=== PATIENT | male | born 1960 | race Caucasian/White ===

== ENCOUNTER 2021-06-24 20:28 | Emergency (ER) | payer OTHER, SELFPAY ==
[2021-06-24 20:35] VITALS: BP 133/79; PULSE 89; RESP 18; TEMP 36.8; O2SAT 94; BMI 33.2
--- NOTE | 2021-06-24 20:48 | ED_ITS ---
HPI - General Adult General: Chief complaint: General Medical Stated complaint: abdominal fluid Time Seen by Provider: 06/24/21 20:37 History of Present Illness: HPI narrative: HPI: [60]yo patient w/ hx of cirrhosis 2/2 hepatitis C treated who presents to the ED for evaluation of abdominal distension and request of routine paracentesis. Last paracentesis was 05/22 with removal of 3.5L of ascitic fluid. Patient denies sever abdominal tenderness, fever/chill, hematemesis, melena/hematochezia, confusion, or vomiting. No hx of acute upper GI bleeding, hepatic encephalopathy or spontaneous bacterial peritonitis in the past. Onset: chronic Duration: ongoing Location: home Severity: mild/moderate Review of Systems Narrative: Constitutional: No fever, no chills. HEENT: No vision changes CV: No chest pain, no palpitations PULM: No productive cough, no dyspnea. GI: No abdominal pain, no N/V/D. +abdominal distension : No Dysuria MSKEL: No muscle pain SKIN: No new rashes, no lesions. NEURO: No headache, no focal weakness. HEME: No visible bruises PSYCH: Normal mood Physical Exam Narrative: EXAM NARRATIVE: Head: Atraumatic Eyes: PERRL, conjunctiva without injection, eyes tracking ENT: Mucous membrane moist NECK: Supple without lymphadenopathy LUNGS: LCTAB CV: RRR ABDOMEN: Soft, nontender in all quadrants, abdominal distension with +fluid waves EXTREMITY: Normal ROM SKIN: No rash or erythema NEURO: Awake and alert. No focal weakness PSYCH: Cooperative mood and affect Procedures Paracentesis Time Out Performed: Yes Indication: Ascites Location: LLQ Local Anesthetic: lidocaine 1% Amount of anesthesia used (mL): 7 Bedside Ultrasound Used: yes, Ascites confirmed and location marked Preparation: 11 blade used to make mayte in skin Amount of fluid obtained (mL): 11,000 Fluid: clear Post Procedure Exam: awake, alert, normal BP, normal HR and normal SpO2 Patient Tolerated Procedure: well and no complications Complications: none Additional Comments: Removal of 11L of ascitic fluid. Patient received 60g of albumin post infusion. Course Vital Signs: Vital signs: Vital Signs Temperature 98.3 F 06/24/21 20:35 Pulse Rate 84 06/25/21 01:50 Respiratory Rate 20 H 06/25/21 01:50 Blood Pressure 121/61 06/25/21 01:50 Pulse Oximetry 93 06/25/21 01:50 MDM - General Adult MDM Narrative: Medical decision making narrative: [70]yo patient w/ hx of cirrhosis last paracentesis 8/8 weeks prior presenting to the ED with increased abdominal distension from ascites requesting routine paracentesis. No suspicion for SBP, hepatic encephalopathy, acute upper GI bleeding, or other emergent intra-abdominal pathologies since the patient has no complaints of abdominal pain and vitals are reassuring. Workup: CBC, CMP, Lipase, PT/INR/INR Lab findings: H&H stable Interventions: Elective paracentesis (please see procedure note) [11:20pm] On reassessment, abdominal distension improved after removal of 11L of ascitic fluids. Patient tolerated the procedure without issues. BP continues to be stable, no signs of orthostatic light-headendess on standing. Given >5L of ascitic fluids, patient received albumin infusion (25g). Patient has been able to ambulate in the ED without issues. Discussed removal of sterile dressing with patients in 48 hrs. Patient was observed in the ED for 5 hrs after paracentesis without any complications. Tolerated PO without any difficulities. Potassium of 2.8, supplemented with 2 tablets of 40mEql of PO potassium. Disposition: Discharge. Instructed regarding follow up within 24-48 hours with a primary care practitioner and strict return precautions for any signs of infection, fever/chill, drainage site erythema, abdominal tenderness, confusion or any new or concerning issues. Lab Data: Labs: Lab Results 06/24/21 06/24/21 06/24/21 Range/Units 21:40 21:40 21:40 WBC 3.7 L (4.0-10.0) 10^3/ uL RBC 3.95 L (4.1-5.3) 10^6/u L Hgb 10.7 L (11.7-16.6) g/dL Hct 34.1 L (42.0-52.0) % MCV 86.3 (80-94) fl MCH 27.1 L (28.0-34.0) pg MCHC 31.4 (30.0-36.0) g/dL RDW 15.9 H (12.1-15.1) % Plt Count 90 L (130-400) 10^3/c mm MPV 10.5 H (7.4-10.4) fL Neut % (Auto) 61.5 % Lymph % (Auto) 22.1 % [place] % (Auto) 11.1 % Eos % (Auto) 4.0 % Baso % (Auto) 0.8 % Neut # (Auto) 2.28 (1.8-7.7) 10^3/u L Lymph # (Auto) 0.8 (0.8-4.8) 10^3/u L [place] # (Auto) 0.4 (0.2-0.9) 10^3/u L Eos # (Auto) 0.2 (0.0-0.8) 10^3/u L Baso # (Auto) 0.0 (0.0-0.1) 10^3/u L Nucleated RBC % (a uto) 0 % Nucleated RBCs # 0.0 /100WBC PT 18.90 H (12.1-14.9) SECO NDS INR 1.55 H (0.8-1.2) APTT 31.8 (23.9-36.7) SECO NDS Sodium 134 L (136-145) mmol/L Potassium 2.8 L* (3.5-5.1) mmol/L Chloride 96 L (98-107) mmol/L Carbon Dioxide 30 H (22-29) mmol/L Anion Gap 10.8 (5-19) BUN 12 (8-23) mg/dL Creatinine 0.6 L (0.7-1.2) mg/dL GFR Calculation 136.5 H (90-130) mL/min Glucose 144 H (65-115) mg/dL Calculated Osmolal ity 280 L (285-295) mOsm/k g Calcium 7.4 L (8.5-10.5) mg/dL Total Bilirubin 2.0 H (0.15-1.2) mg/dL AST 34 (0-40) U/L ALT 24 (0-41) U/L Alkaline Phosphata se 92 (40-130) IU/L Total Protein 5.8 L (6.6-8.7) g/dL Albumin 3.0 L (3.5-5.2) g/dL Globulin 2.8 (1.3-4.6) g/dL Lipase 50 (13-60) U/L Discharge Plan Discharge Patient Disposition: Home Clinical Impression: Hypokalemia Cirrhosis Qualifiers: Hepatic cirrhosis type: unspecified hepatic cirrhosis Ascites presence: with ascites Qualified Code(s): K74.60 - Unspecified cirrhosis of liver Abdominal ascites Qualifiers: Ascites type: other type Qualified Code(s): R18.8 - Other ascites Condition: Stable Discharge Orders: Discharge ED (Routine); Ordered 06/25/21 Ordered By: Rusty Smallwood Referrals: Issac Figueredo [Occupational Therapist] - Discharge Diet: Advance as tolerated Discharge Activity: Resume usual activity Patient Instructions: Ascites (ED) Activity Restrictions/Additional Instructions: Come back if there are any signs of infection around the site of the paracentesis. Come back if you have any new or concerning complaints. Coding Level of Care Code ED [facility] Nursing Director for Merly Hollis
[2021-06-24 22:02] LABS: Basophils % 0.8 %; Eosinophils # 0.2 10^3/uL (0.0-0.8); Hematocrit 34.1 % (42.0-52.0); Hemoglobin 10.7 g/dL (11.7-16.6); Lymphocytes # 0.8 10^3/uL (0.8-4.8); Lymphocytes % 22.1 %; Mean Corpuscular HGB Conc 31.4 g/dL (30.0-36.0); Mean Corpuscular Hemoglobin 27.1 pg (28.0-34.0); Mean Corpuscular Volume 86.3 fl (80-94); Mean Platelet Volume 10.5 fL (7.4-10.4); Monocytes # 0.4 10^3/uL (0.2-0.9); Monocytes % 11.1 %; Neutrophils # 2.28 10^3/uL (1.8-7.7); Neutrophils % 61.5 %; Nucleated Red Blood Cells % 0 %; Platelet Count 90 10^3/cmm (130-400); Red Blood Count 3.95 10^6/uL (4.1-5.3); Red Cell Distribution Width 15.9 % (12.1-15.1); White Blood Count 3.7 10^3/uL (4.0-10.0)
[2021-06-24 22:26] LABS: Alanine Aminotransferase 24 U/L (0-41); Alkaline Phosphatase 92 IU/L (40-130); Anion Gap 10.8 (5-19); Aspartate Amino Transferase 34 U/L (0-40); Blood Urea Nitrogen 12 mg/dL (8-23); Calcium 7.4 mg/dL (8.5-10.5); Carbon Dioxide 30 mmol/L (22-29); Chloride 96 mmol/L (98-107); Globulin 2.8 g/dL (1.3-4.6); Glomerular Filtration Rate 136.5 mL/min (90-130); Glucose 144 mg/dL (65-115); Lipase 50 U/L (13-60); Osmolality Calculated 280 mOsm/kg (285-295); Sodium 134 mmol/L (136-145); Total Protein 5.8 g/dL (6.6-8.7)
[2021-06-24 22:29] LABS: Potassium 2.8 mmol/L (3.5-5.1)
[2021-06-24 22:42] LABS: INR 1.55 (0.8-1.2)
[2021-06-24 22:43] LABS: Partial Thromboplastin Time 31.8 SECONDS (23.9-36.7)
[2021-06-24] MEDS: potassium chloride ER 20 mEq Tablet 40 MEQ PO ×2 (23:29)
[2021-06-24 23:32] VITALS: BP 124/76; PULSE 86; RESP 18
[2021-06-25 00:11] VITALS: BP 105/51; PULSE 82; RESP 17; O2SAT 93
[2021-06-25 00:30] VITALS: BP 109/50; PULSE 83; RESP 17; O2SAT 90
[2021-06-25 01:00] VITALS: BP 109/48; PULSE 84; RESP 17; O2SAT 93
[2021-06-25 01:50] VITALS: BP 121/61; PULSE 84; RESP 20; O2SAT 93
--- NOTE | 2021-06-25 01:54 | PC.NURSE ---
assistance to Dr given for paracentesis procedure. Over 11L of fluid withdrawn. Pt feeling immediate relief
== END 2021-06-25 01:38 | disposition home or self-care (01) ==
PROVIDERS: Emergency Provider Emergency Medicine; PCP Pediatrics
DX: K74.60 Unspecified cirrhosis of liver (principal); R18.8 Other ascites; E87.6 Hypokalemia
CPT/HCPCS: 49083; 80053; 83690; 85025; 85610; 85730; 96365; 96366; 99284; 99291; P9047

== ENCOUNTER 2022-01-15 12:43 | Inpatient (IN) | payer OTHER, MEDICARE, SELFPAY ==
[2022-01-15] VITALS (28 sets, daily range): BP systolic 88–108; BP diastolic 42–72; PULSE 84–97; RESP 16–30; TEMP 35.5–36.3; O2SAT 95–100; BMI 21.6
--- NOTE | 2022-01-15 12:54 | ED_ITS ---
HPI - GI Bleed General: Chief complaint: Dizziness Stated complaint: BLOOD IN STOOL Time Seen by Provider: 01/15/22 12:46 Source: patient Mode of arrival: EMS Limitations: no limitations History of Present Illness: 61-year-old male presents emergency room complaining of lightheadedness and dizziness when he stands up he said some bright red blood in the stool. His abdomen has been distended. This been an ongoing issue. Evidently the patient has found a way to self paracentesis. He has been using an X-Acto knife which she sterilizes by flame and then use a topical anesthetic and antiseptic to prepare and then will use the X-Acto knife to incise an umbilical hernia and drain ascites fluid. He has been doing this for last 2 months he said the first time he did it he got 5 gallons of fluid the second time he is only gotten 2 in each subsequent time he gets around 2 gallons. He denies any fever sweats or chills. He states his chronic liver disease due to hepatitis C. MD complaint: gross hematochezia Onset (ago): hour(s) Pain Consistency: intermittent Severity: moderate Relieving factors: none Exacerbating factors: none Associated symptoms: Denies abdominal pain, chills, fever(s), malaise, nausea, rash or vomiting Review of Systems Const: Denies: fever(s), chills, body aches, change in appetite, fatigue or malaise ENMT: Denies: throat pain, ear or mastoid pain, nasal discharge or nasal congestion Card: Denies: chest pain, edema, dyspnea on exertion or orthopnea Resp: Denies: dyspnea, productive cough or non-productive cough GI: Denies: abdominal pain, nausea, vomiting, hematemesis, coffee ground emesis, diarrhea, constipation, bloating, hematochezia or melena : Denies: flank pain, dysuria, urinary frequency or urinary urgency Skin/Breast: Denies: rash or pruritus PFSH ED PFSH: Medical History (Updated 01/16/22 @ 06:48 by Alexandru Cesar DO) Hepatitis C Surgical History (Updated 01/16/22 @ 06:46 by Alexandru Cesar DO) Hx laparoscopic cholecystectomy Social History (Updated 01/16/22 @ 06:46 by Alexandru L Horstman, DO) Smoking and tobacco status: current every day smoker Alcohol intake: former Physical Exam Const: GENERAL APPEARANCE: cooperative and comfortable ORIENTATION/CONSCIOUSNESS: Yes awake, Yes oriented to person, Yes oriented to place and Yes oriented to time HENMT: COMMON NORMALS: normocephalic, atraumatic and hearing grossly normal bilaterally HEAD & SCALP: normocephalic and atraumatic Neck/C-Spine: COMMON NORMALS: no JVD Resp: COMMON NORMALS: normal respiratory effort, No retractions, No use of accessory muscles and clear to auscultation bilaterally AUSCULTATION: clear to auscultation bilaterally Cardio: COMMON NORMALS: no JVD, regular rate, regular rhythm and No murmurs present (Cardio) RATE: regular rate RHYTHM: regular rhythm GI: COMMON NORMALS: No hepatosplenomegaly present INSPECTION: Yes abdominal distension and Yes Fluid wave present AUSCULTATION: Yes Hypoactive bowel sounds present PALPATION: No Tenderness to palpation present (GI), No Guarding due to palpation present (GI) and Yes No hepatosplenomegaly present PERCUSSION: Fluid wave present : COMMON NORMALS: Yes no CVA tenderness BLADDER/KIDNEY EXAM: Yes no CVA tenderness Back/Pelvis: COMMON NORMALS: no CVA tenderness Extremity: COMMON NORMALS: normal to inspection, capillary refill normal, no clubbing, cyanosis or edema, no calf tenderness and no pedal edema Neuro: SENSORIUM/ORIENTATION: Yes oriented to person, Yes oriented to place and Yes oriented to time Skin: COMMON NORMALS: no rashes or lesions noted GENERAL SKIN EXAM: no rashes or lesions noted Course Vital Signs: Vital signs: Vital Signs Temperature 96.2 F L 01/16/22 04:00 Pulse Rate 87 01/16/22 04:45 Respiratory Rate 23 H 01/16/22 04:45 Blood Pressure 89/51 01/16/22 04:45 Pulse Oximetry 98 01/16/22 04:45 MDM - GI Bleed Medical Decision Making Lower GI bleed also concerned about his self paracentesis concerned he may have a bacterial peritonitis. Discussed with hospitalist consult surgeon. Medical Records I reviewed the patient's medical records. Lab Data I reviewed the patient's lab results. : 01/16/22 05:50 01/16/22 02:05 Radiology Impressions Abdomen/Pelvis CT 01/15/22 12:55 IMPRESSION: 1. Hepatic cirrhosis, with evidence of portal venous hypertension. Impression. 2. Occluded right portal vein. 3. Recanalized right portal vein posterior branch via collateral. 4. Intrahepatic portal-portal venous shunting. 5. Mild splenomegaly. 6. Spontaneous splenorenal shunt. 7. Gastric distension. Nonspecific intragastric hyperdensity (upper GI bleeding history?). 8. Findings consistent with nonspecific jejunitis and colitis. Clinical correlation to determine the specific etiology is recommended. Consider hepatic enteropathy. 9. Prior cholecystectomy. 10. Bilateral renal probable benign cysts. No follow-up imaging is recommended. 11. Left renal calyceal lithiasis. 12. Mild focal left renal cortical scarring. 13. Moderate abdominal and pelvic ascites. 14. Right inguinal hernia. 15. Paraumbilical hernia. 16. Diverticulosis. 17. Chronic calcific prostatitis. 18. Right lower lobe pulmonary artery embolus. 19. Coronary atherosclerosis. COMMENTS: Consistent with the [employer]'s Incidental Findings Committee white paper (J Am Rehan Radiol 2018): Any incidental renal lesion less than 1 cm or classified as too small to characterize, or any incidental cystic renal lesion characterized as simple-appearing, is likely benign. No follow-up imaging is recommended for these lesions per consensus recommendations based on imaging criteria. ADDENDUM: 01/15/22 1607 THIS REPORT CONTAINS FINDINGS THAT MAY BE CRITICAL TO PATIENT CARE. The findings were verbally communicated by me to DR. ALEXANDRU CESAR via telephone conference at 4:04 PM CDT on 01/15/2022. The findings were acknowledged and understood. CORRECTION: 1. Hepatic cirrhosis, with evidence of portal venous hypertension. Chest X-Ray 01/15/22 13:24 IMPRESSION: 2.3 cm rounded pneumonia in the left mid lung field. Follow-up exam is recommended to document clearing and rule out underlying neoplasm. Abdomen Ultrasound 01/15/22 15:29 IMPRESSION: Mild-moderate anechoic abdominal ascites. Scrotum Ultrasound 01/15/22 15:51 IMPRESSION: Large right scrotal hydrocele. Laboratory Results WBC 9.2 10^3/uL (4.0-10.0) 01/15/22 12:56 RBC 3.33 10^6/uL (4.1-5.3) L 01/15/22 12:56 Hgb 8.7 g/dL (11.7-16.6) L 01/15/22 12:56 Hct 29.6 % (42.0-52.0) L 01/15/22 12:56 MCV 88.9 fl (80-94) 01/15/22 12:56 MCH 26.1 pg (28.0-34.0) L 01/15/22 12:56 MCHC 29.4 g/dL (30.0-36.0) L 01/15/22 12:56 RDW 19.0 % (12.1-15.1) H 01/15/22 12:56 Plt Count 116 10^3/cmm (130-400) L 01/15/22 12:56 MPV 10.4 fL (7.4-10.4) 01/15/22 12:56 Neut % (Auto) 81.0 % 01/15/22 12:56 Lymph % (Auto) 10.3 % 01/15/22 12:56 [place] % (Auto) 5.6 % 01/15/22 12:56 Eos % (Auto) 0.7 % 01/15/22 12:56 Baso % (Auto) 0.5 % 01/15/22 12:56 Neut # (Auto) 7.42 10^3/uL (1.8-7.7) 01/15/22 12:56 Lymph # (Auto) 0.9 10^3/uL (0.8-4.8) 01/15/22 12:56 [place] # (Auto) 0.5 10^3/uL (0.2-0.9) 01/15/22 12:56 Eos # (Auto) 0.1 10^3/uL (0.0-0.8) 01/15/22 12:56 Baso # (Auto) 0.1 10^3/uL (0.0-0.1) 01/15/22 12:56 Nucleated RBC % (auto) 0 % 01/15/22 12:56 Nucleated RBCs # 0.0 /100WBC 01/15/22 12:56 PT 19.40 SECONDS (12.1-14.9) H 01/15/22 13:17 INR 1.59 (0.8-1.2) H 01/15/22 13:17 APTT 32.5 SECONDS (23.9-36.7) 01/15/22 13:17 Sodium 127 mmol/L (136-145) L 01/15/22 14:19 Potassium 4.9 mmol/L (3.5-5.1) 01/15/22 14:19 Chloride 101 mmol/L (98-107) 01/15/22 14:19 Carbon Dioxide 18 mmol/L (22-29) L 01/15/22 14:19 Anion Gap 12.9 (5-19) 01/15/22 14:19 BUN 28 mg/dL (8-23) H 01/15/22 14:19 Creatinine 0.7 mg/dL (0.7-1.2) 01/15/22 14:19 GFR Calculation 113.9 mL/min (90-130) 01/15/22 14:19 Glucose 315 mg/dL (65-115) H 01/15/22 14:19 Calculated Osmolality 282 mOsm/kg (285-295) L 01/15/22 14:19 Lactic Acid 2.4 mmol/L (0.5-2.2) H 01/15/22 13:40 Lactic Acid (Sepsis) 4.1 mmol/L (0.5-2.2) H* 01/15/22 15:24 Calcium 7.2 mg/dL (8.5-10.5) L 01/15/22 14:19 Total Bilirubin 0.7 mg/dL (0.15-1.2) 01/15/22 14:19 AST 26 U/L (0-40) 01/15/22 14:19 ALT 20 U/L (0-41) 01/15/22 14:19 Alkaline Phosphatase 76 IU/L (40-130) 01/15/22 14:19 Total Protein 4.9 g/dL (6.6-8.7) L 01/15/22 14:19 Albumin 1.9 g/dL (3.5-5.2) L 01/15/22 14:19 Globulin 3.0 g/dL (1.3-4.6) 01/15/22 14:19 Lipase 68 U/L (13-60) H 01/15/22 14:19 Urine Color Dark yellow (Yellow) 01/15/22 14:35 Urine Appearance Clear (CLEAR) 01/15/22 14:35 Urine pH 5 (5-7) 01/15/22 14:35 Ur Specific [place] 1.020 (1.005-1.030) 01/15/22 14:35 Urine Protein Neg (Negative) 01/15/22 14:35 Urine Glucose (UA) 1+ (Normal) H 01/15/22 14:35 Urine Ketones 1+ (Negative) H 01/15/22 14:35 Urine Blood Neg (Negative) 01/15/22 14:35 Urine Nitrate Negative (Negative) 01/15/22 14:35 Urine Bilirubin 1+ (Negative) H 01/15/22 14:35 Urine Urobilinogen 1 mg/dL (Negative) H 01/15/22 14:35 Ur Leukocyte Esterase Negative (Negative) 01/15/22 14:35 Discharge Plan Discharge Patient Disposition: Admitted As Inpatient Admit Provider: Scott Dodd Clinical Impression: GI bleed, Pulmonary embolism, Decompensated hepatic cirrhosis, Hyponatremia, Thrombocytopenia, Anemia, Lactic acidosis Condition: Stable Coding Level of Care Code ED [employer] Coordinator for Merly Hollis
--- NOTE | 2022-01-15 12:55 | CTR_ITS ---
PROCEDURE INFORMATION: Exam: CT Abdomen And Pelvis With Contrast Exam date and time: 01/15/2022 3:12 PM Age: 61 years old Clinical indication: Abdominal pain; Prior surgery; Additional info: Abd pain TECHNIQUE: Imaging protocol: Computed tomography of the abdomen and pelvis with contrast. Radiation optimization: All CT scans at this facility use at least one of these dose optimization techniques: automated exposure control; mA and/or kV adjustment per patient size (includes targeted exams where dose is matched to clinical indication); or iterative reconstruction. Contrast material: OMNI 300; Contrast volume: 95 ml; Contrast route: INTRAVENOUS (IV); COMPARISON: CR (CHEST, ) 01/15/2022 2:04 PM RADIATION DOSE METRICS: Total DLP (mGy-cm): 1588.47 FINDINGS: Tubes, catheters and devices: Spontaneous splenorenal shunt. Lungs: Right lower lobe calcified pulmonary parenchymal granuloma. Bands of subsegmental atelectasis/scarring right middle lobe medial segment, inferior segment of the lingula and bilateral lung bases. Mild medial segment left lower lobe pulmonary subsegmental atelectasis. Heart: Atherosclerotic calcifications are present involving the RCA coronary artery. Liver: There is a nodular contour to the liver and hypertrophy of the left lobe lateral segment and caudate lobe, consistent with hepatic cirrhosis. No mass. Gallbladder and bile ducts: The gallbladder is surgically absent, with metallic clips in the gallbladder fossa. No extrahepatic biliary ductal dilatation or calculus. Pancreas: Normal. No ductal dilation. Spleen: The spleen is mildly enlarged measuring 14.2 cm transversely. Adrenal glands: Normal. No mass. Kidneys and ureters: Bilateral renal probable benign cysts, largest on the right measuring 2.0 cm. Left mid-lower kidney 2.2 mm calyceal calculus. No hydronephrosis/obstructive uropathy. Mild focal left renal cortical scarring. Stomach and bowel: Gastric distension by food, fluid, gas and unidentified hyperattenuating material. No active gastrointestinal bleeding identified. Multifocal colonic mild-moderate wall thickening, involving the ascending, proximal transverse, mid-distal descending and, proximal sigmoid colon and rectosigmoid colonic junction. Mild jejunal wall thickening. Sigmoid, descending and distal transverse colonic diverticula are present without evidence of diverticulitis. Appendix: No evidence of appendicitis. Intraperitoneal space: Moderate abdominal and pelvic ascites. Vasculature: Recanalized paraumbilical vein maximally measuring 5.1 mm, small distal paraesophageal varices, largest 2.4 mm. Perigastric collaterals measuring 6.7 mm. Occluded right portal vein. Recanalized right portal vein posterior branch via collateral. Intrahepatic portal venous shunting to the peripheral anterior branch right portal vein from the left lobe medial segment branch. Moderate abdominal aortic atherosclerotic calcification without aneurysm. The iliac arteries show mild bilateral atherosclerotic calcifications without evidence of aneurysm. Right lower lobe pulmonary artery embolus. Lymph nodes: Right hilar granulomatous dede calcifications are present. Urinary bladder: Unremarkable as visualized. Reproductive: The prostate gland demonstrates nonspecific parenchymal calcifications. Bones/joints: Bilateral lower lumbar facet primary osteoarthritis. L4-L5 degenerative disc disease. Soft tissues: A right inguinal hernia is present containing only peritoneal fluid in the vermiform appendix, without appendicitis. A 5.1 cm paraumbilical hernia containing abdominal fat and ascites. CT/CT abdomen pelvis w con* [id number] IMPRESSION: 1. Hepatic cirrhosis, with evidence of portal venous hypertension. Impression. 2. Occluded right portal vein. 3. Recanalized right portal vein posterior branch via collateral. 4. Intrahepatic portal-portal venous shunting. 5. Mild splenomegaly. 6. Spontaneous splenorenal shunt. 7. Gastric distension. Nonspecific intragastric hyperdensity (upper GI bleeding history?). 8. Findings consistent with nonspecific jejunitis and colitis. Clinical correlation to determine the specific etiology is recommended. Consider hepatic enteropathy. 9. Prior cholecystectomy. 10. Bilateral renal probable benign cysts. No follow-up imaging is recommended. 11. Left renal calyceal lithiasis. 12. Mild focal left renal cortical scarring. 13. Moderate abdominal and pelvic ascites. 14. Right inguinal hernia. 15. Paraumbilical hernia. 16. Diverticulosis. 17. Chronic calcific prostatitis. 18. Right lower lobe pulmonary artery embolus. 19. Coronary atherosclerosis. COMMENTS: Consistent with the [employer]'s Incidental Findings Committee white paper (J Am Rehan Radiol 2018): Any incidental renal lesion less than 1 cm or classified as too small to characterize, or any incidental cystic renal lesion characterized as simple-appearing, is likely benign. No follow-up imaging is recommended for these lesions per consensus recommendations based on imaging criteria.
--- NOTE | 2022-01-15 13:02 | PC.NURSE ---
PT IS ON CONTINUOUS SPO2, NIBP, AND CM.
[2022-01-15 13:11] LABS: Basophils # 0.1 10^3/uL (0.0-0.1); Basophils % 0.5 %; Eosinophils # 0.1 10^3/uL (0.0-0.8); Eosinophils % 0.7 %; Hematocrit 29.6 % (42.0-52.0); Hemoglobin 8.7 g/dL (11.7-16.6); Lymphocytes # 0.9 10^3/uL (0.8-4.8); Lymphocytes % 10.3 %; Mean Corpuscular HGB Conc 29.4 g/dL (30.0-36.0); Mean Corpuscular Hemoglobin 26.1 pg (28.0-34.0); Mean Corpuscular Volume 88.9 fl (80-94); Mean Platelet Volume 10.4 fL (7.4-10.4); Monocytes # 0.5 10^3/uL (0.2-0.9); Monocytes % 5.6 %; Neutrophils # 7.42 10^3/uL (1.8-7.7); Nucleated Red Blood Cells % 0 %; Platelet Count 116 10^3/cmm (130-400); Red Blood Count 3.33 10^6/uL (4.1-5.3); White Blood Count 9.2 10^3/uL (4.0-10.0)
--- NOTE | 2022-01-15 13:24 | XRR_ITS ---
PROCEDURE INFORMATION: Exam: XR Chest Exam date and time: 01/15/2022 2:04 PM Age: 61 years old Clinical indication: Cough and dyspnea; Additional info: Dyspnea/cough TECHNIQUE: Imaging protocol: XR of the chest. Views: 1 view. COMPARISON: No relevant prior studies available. FINDINGS: Lungs: 2.3 cm rounded pneumonia in the left mid lung field. Follow-up exam is recommended to document clearing and rule out underlying neoplasm. Pleural spaces: Unremarkable. No pleural effusion. No pneumothorax. Heart/Mediastinum: Unremarkable. No cardiomegaly. Bones/joints: Unremarkable. XR/XR chest 1V portable [id number] IMPRESSION: 2.3 cm rounded pneumonia in the left mid lung field. Follow-up exam is recommended to document clearing and rule out underlying neoplasm.
--- NOTE | 2022-01-15 13:41 | PC.NURSE ---
CALLED TO PT ROOM BY ANOTHER RN STATING THAT PT DOES NOT FILL GOOD AND BP IS 64/34. INFORMED DR. CESPEDES VO TO ADM NS BOLUS 1L.
--- NOTE | 2022-01-15 13:44 | PC.NURSE ---
WHILE AT BEDSIDE PT PLACED IN [place] POSITION BP HAS INCREASED TO 83/49 PT REPORTS THAT HE, FEELS BETTER .
[2022-01-15] MEDS: sodium chloride 0.9% 1,000 ML 999 ML IV (13:48)
--- NOTE | 2022-01-15 13:58 | PC.NURSE ---
WHILE AT BEDSIDE PT STATES THAT HE IS FEELING BETTER.
[2022-01-15 14:13] LABS: Lactic Sepsis W/Reflex 2.4 mmol/L (0.5-2.2)
[2022-01-15 14:14] LABS: INR 1.59 (0.8-1.2); Partial Thromboplastin Time 32.5 SECONDS (23.9-36.7)
[2022-01-15 14:42] LABS: Add Urine Microscopic? NO; Charge for UA Resulting for Rev
[2022-01-15 14:54] LABS: Blood Urine Neg (Negative); Glucose Urine UA 1+ (Normal); Ketones Urine 1+ (Negative); Protein Urine Neg (Negative); Urine Appearance Clear (CLEAR); Urine Color Dark Yellow (Yellow); pH Urine 5 (5-7)
[2022-01-15 14:55] LABS: Bilirubin Urine 1+ (Negative); Leukocyte Esterase Urine Negative (Negative); Nitrate Urine Negative (Negative); Urobilinogen Urine 1 mg/dL (Negative)
[2022-01-15 14:58] LABS: Alanine Aminotransferase 20 U/L (0-41); Albumin Level 1.9 g/dL (3.5-5.2); Alkaline Phosphatase 76 IU/L (40-130); Anion Gap 12.9 (5-19); Aspartate Amino Transferase 26 U/L (0-40); Blood Urea Nitrogen 28 mg/dL (8-23); Calcium 7.2 mg/dL (8.5-10.5); Carbon Dioxide 18 mmol/L (22-29); Chloride 101 mmol/L (98-107); Glomerular Filtration Rate 113.9 mL/min (90-130); Glucose 315 mg/dL (65-115); Lipase 68 U/L (13-60); Osmolality Calculated 282 mOsm/kg (285-295); Potassium 4.9 mmol/L (3.5-5.1); Sodium 127 mmol/L (136-145); Total Bilirubin 0.7 mg/dL (0.15-1.2); Total Protein 4.9 g/dL (6.6-8.7)
[2022-01-15 15:02] LABS: Reflex Lactate Order REFLEX LACTIC ORDERD
[2022-01-15] MEDS: iohexol 300 mg/mL 100 mL Btl IV (15:19)
--- NOTE | 2022-01-15 15:29 | USR_ITS ---
PROCEDURE INFORMATION: Exam: US Abdomen; Limited Exam date and time: 01/15/2022 3:42 PM Age: 61 years old Clinical indication: Other: Blood in stool; Additional info: Ascites TECHNIQUE: Imaging protocol: US abdomen. Real time ultrasound with image documentation. Limited exam focused on the region of clinical interest. COMPARISON: CT abdomen pelvis w con* [id number] 01/15/2022 3:12 PM FINDINGS: Intraperitoneal space: Mild-moderate anechoic abdominal ascites, largest pocket right upper quadrant measuring 3.8 cm. US/US abdomen lmt fluid [id number] IMPRESSION: Mild-moderate anechoic abdominal ascites.
--- NOTE | 2022-01-15 15:51 | USR_ITS ---
PROCEDURE INFORMATION: Exam: US Scrotum Exam date and time: 01/15/2022 3:54 PM Age: 61 years old Clinical indication: Other: PT here for blood in stool. Has ascites and now is is scrotum; Additional info: Scrotal swelling TECHNIQUE: Imaging protocol: Real-time ultrasound of the scrotum and contents with color Doppler and image documentation. COMPARISON: CT abdomen pelvis w con* [id number] 01/15/2022 3:12 PM FINDINGS: Left testicle: 2.7 x 1.5 x 2.3 cm. No mass. No torsion. Normal vascular flow. Right testicle: 3.0 x 1.2 x 2.7 cm. No mass. No torsion. Normal vascular flow. Epididymides: Left epididymal head 5.4 x 5.3 mm. Left epididymal cyst measuring 4.5 mm. Right epididymal head 9.1 x 5.2 mm. Scrotum: Anechoic large superior right-sided hydrocele. US/US scrotum [id number] IMPRESSION: Large right scrotal hydrocele.
[2022-01-15 16:06] LABS: Lactic Acid level (Lactate) 4.1 mmol/L (0.5-2.2)
--- NOTE | 2022-01-15 16:12 | PM.HP ---
Providers/Chief Complaint Primary Care Provider: Issac Figueredo MD Chief Complaint: BLOOD IN STOOL History of Present Illness Memo Reyes Sr is a 61 year old male with past medical history of decompensated liver cirrhosis likely secondary to hep C and alcohol abuse (quit drinking 20 years back ) , diabetes, came in with chief complaint of dizziness as well as lightheadedness, he was also complaining of dark stool with blood tinge seen today. Patient has been also doing self paracentesis at home for the past 2 months He has been using an X-Acto knife which she sterilizes by flame and then use a topical anesthetic and antiseptic to prepare and then will use the X-Acto knife to incise an umbilical hernia and drain ascites fluid.? He has been doing this for last 2 months he said the first time he did it he got 5 gallons of fluid the second time he is only gotten 2 in each subsequent time he gets around 2 gallons. At home he has been denying, fever, chills, nausea vomiting at home.Patient has history of chronic hep C for which he says he has received treatment in the past. Today while he was on the medical floor he had a large bloody hematemesis. Currently he is being worked up for above-mentioned complaint: Pertinent imaging studies: CT abdomen and pelvis: Hepatic cirrhosis, with evidence of portal venous hypertension. Impression. Occluded right portal vein. Recanalized right portal vein posterior branch via collateral. Intrahepatic portal-portal venous shunting. Mild splenomegaly. Spontaneous splenorenal shunt. Gastric distension.? Nonspecific intragastric hyperdensity (upper GI bleeding history?). Findings consistent with nonspecific jejunitis and colitis. Clinical correlation to determine the specific etiology is recommended. Consider hepatic enteropathy. Prior cholecystectomy. Bilateral renal probable benign cysts. No follow-up imaging is recommended. Left renal calyceal lithiasis. Mild focal left renal cortical scarring. Moderate abdominal and pelvic ascites. Right inguinal hernia. Paraumbilical hernia. Diverticulosis. Chronic calcific prostatitis. Right lower lobe pulmonary artery embolus. US abdomen lmt fluid: Mild-moderate anechoic abdominal ascites. ? ?US scrotum: Large right scrotal hydrocele. Pertinent labs: WBC: 9.2 , H&H:8.7/29.6 , PLT : 116 , Serum sodium 127, serum potassium 4.9, BUN and serum creatinine: 28/0.7 , lactic acid 4.1, albumin:1.9 Lipase 68 Review of Systems General: Reports: 10 or more systems reviewed and unremarkable except in HPI and below Const: Denies: fever(s), chills, body aches, change in appetite or diaphoresis Card: Denies: palpitations, edema, swelling of feet/ankles, dyspnea on exertion, orthopnea or leg pain with exertion Resp: Denies: dyspnea, productive cough, wheezing or pain on inspiration GI: Reports: abdominal pain, nausea and vomiting; Denies: diarrhea or constipation : Denies: flank pain or difficulty urinating Musc: Denies: back pain, extremity pain or extremity swelling Neuro: Denies: headache(s), difficulty walking or confusion Medications/Allergies Home Medications Medication Instructions Recorded Confirmed Last Taken Type insulin glargine 100 unit/mL 20 unit SUBCUT DAILY 01/15/22 01/15/22 01/14/22 History subcutaneous solution (Lantus U-100 Insulin) Allergies Allergy/AdvReac Type Severity Reaction Status Date / Time No Known Allergies Allergy Verified 01/15/22 12:46 Vitals/I&O/Wt Last Vital Signs Temp 97.4 F L 01/15/22 12:46 Pulse 93 01/15/22 14:05 Resp 22 H 01/15/22 14:05 BP 90/54 01/15/22 14:05 Pulse Ox 98 01/15/22 14:05 Weight last 48 hrs Weight 70.307 kg Physical Exam Const: COMMON NORMALS: patient oriented x3 HENMT: COMMON NORMALS: normocephalic and atraumatic HEAD & SCALP: normocephalic and atraumatic EXTERNAL EAR: Yes external ears normal Chest: CHEST: Yes Symmetrical chest wall rise Resp: COMMON NORMALS: normal respiratory effort, No retractions, No use of accessory muscles and clear to auscultation bilaterally EFFORT & INSPECTION: Yes symmetric chest movement AUSCULTATION: clear to auscultation bilaterally Cardio: COMMON NORMALS: regular rate, regular rhythm, S1 normal heart sound present, S2 normal heart sound present, No gallops present (Cardio), No murmurs present (Cardio), No rub (Cardio) and Peripheral pulses 2+ throughout RATE: regular rate RHYTHM: regular rhythm HEART SOUNDS: S1 normal heart sound present and S2 normal heart sound present PERIPHERAL PULSES: Peripheral pulses 2+ throughout GI: AUSCULTATION: Yes normoactive bowel sounds PALPATION: Yes Soft to palpation and Yes No hepatosplenomegaly present RECTAL EXAM: Yes deferred OTHER: Abdominal Distension, Normal BS, no tenderness Extremity: COMMON NORMALS: no clubbing, cyanosis or edema and no pedal edema Neuro: COMMON NORMALS: patient oriented x3 Data : 01/15/22 18:35 01/15/22 14:19 Micro: Microbiology 01/15/22 14:19 Blood Culture - Preliminary Blood SPECIMEN COLLECTED 01/15/22 13:40 Blood Culture - Preliminary Blood SPECIMEN COLLECTED A&P Assessment and plan (1) Decompensated hepatic cirrhosis: Status: Acute (2) Hyponatremia: Status: Acute (3) Thrombocytopenia: Status: Acute (4) Anemia: Status: Acute (5) Lactic acidosis: Status: Acute (6) GI bleed: Status: Acute (7) Pulmonary embolism: Status: Acute Plan 61 year old male with past medical history of decompensated liver cirrhosis likely secondary to hep C and alcohol abuse (quit drinking 20 years back ) , diabetes, came in with chief complaint of dizziness as well as lightheadedness, he was also complaining of dark stool with blood tinge seen today. Assessment: #GI bleed: Upper GI bleed, secondary to varices secondary to decompensated liver cirrhosis: Patient had large bloody hematemesis today while on medical floor. H&H every 4 hours N.p.o. Protonix drip Octreotide drip Normal saline at 100 cc an hour Transfuse to maintain hemoglobin greater than 7 We will consult surgery for EGD #Normocytic anemia: Possibly secondary to GI bleed, liver cirrhosis Anemia high school counselor H&H #Thrombocytopenia: Secondary to decompensated liver cirrhosis, splenomegaly Monitor platelet count for now #Right pulmonary embolism: Not a candidate for anticoagulation #Ascites: In the setting of decompensated liver cirrhosis, No abdominal tenderness, no guarding no rigidity no rebound tenderness. Patient has been self draining his ascitic fluid at home, put him is at for possible secondary bacterial peritonitis, possible SBP. Not a good pocket for diagnostic or therapeutic tap for now will empirically cover with him Zosyn. We will give him albumin 75 g (for now we will avoid the normal dosing for SBP -1.5 gm/kg on day 1, as well as 1gm/kg body weight on day 3) We will consult IR in the morning for possible diagnostic tap. #Hypervolemic hyponatremia: Likely secondary to relative SIADH in the setting of decompensated liver cirrhosis. Current serum sodium is:127 Urine sodium Random cortisol Urine osmolality Serum osmolality TSH Continue to monitor serum sodium every 4 hours #Splenomegaly #Large right scrotal hydrocele: Ultrasound scrotum:Left testicle:? 2.7 x 1.5 x 2.3 cm. No mass. No torsion. Normal vascular flow. Right testicle:? 3.0 x 1.2 x 2.7 cm. No mass. No torsion. Normal vascular flow. Epididymides:? Left epididymal head 5.4 x 5.3 mm.? Left epididymal cyst measuring 4.5 mm.? Right epididymal head 9.1 x 5.2 mm. Scrotum:? Anechoic large superior right-sided hydrocele. Continue to monitor for now. #Occluded right portal vein. #Right inguinal hernia.: No signs of incarceration Surgery follow-up as an outpatient #?Paraumbilical hernia. #Diabetes: Continue sliding insulin scale #CODE STATUS: Full code #DVT prophylaxis: On SCD Attestations Medical Necessity Statement*: Patient is still in hospital for management of GI bleed, decompensated liver cirrhosis. Anticipated length of stay greater than 2 midnights. Time Spent in Patient Care: Greater than 35 minutes (>than 50% of time spent in counselling and/or direct pt care on unit). Critical Care Time: The high probability of a clinically significant, sudden or life threatening deterioration of the patient's [] system(s) required my full and direct attention, intervention and personal management. The critical care time is as shown. This time is in addition to time spent performing any reported procedures but includes the following: [x] Data and vital sign review and interpretation [x] Patient assessment, examination and intervention [x] Documentation [x] Medication orders and management Critical Care Time (min): 90 Coding Level of Care Code Acute Social Science Research Assistant for [facility] Fwd Exam Detailed Diagnoses Decompensated hepatic cirrhosis K72.90; K74.60 Hyponatremia E87.1 Thrombocytopenia D69.6 Anemia D64.9 Lactic acidosis E87.2 GI bleed K92.2 Pulmonary embolism I26.99
[2022-01-15] MEDS: pantoprazole 40 mg SDV IVP (16:26)
[2022-01-15] MEDS: piperacillin-tazobactam 3.375 GM in sodium chloride 0.9% (plus) 50 ML IV (16:26)
--- NOTE | 2022-01-15 16:32 | PC.NURSE ---
report called to kia changinternal recruiter.
--- NOTE | 2022-01-15 16:45 | PC.PHAR ---
pt unable to verify medications- [phone] calling [facility] with no [facility]. pt states he takes Lantus 20 units once daily but unsure of other medications.
--- NOTE | 2022-01-15 17:10 | PC.NURSE ---
PATIENT DRAINS ABDOMEN HIMSELF AT HOME BY CLEANING BELLY BUTTON, INJECTING LIDOCAINE, AND USING A STERILIZED KNIFE TO MAKE AN INCISION ON THE BELLY BUTTON. HE DRAINS ABDOMINAL FLUID INTO A 5 GALLON BUCKET . SCROTUM IS EDEMATOUS AND RED. REDNESS TO SACRUM BUT BLANCHABLE.
[2022-01-15 18:39] LABS: Glucose Point of Care 330 mg/dL (70-110)
--- NOTE | 2022-01-15 18:39 | PC.NURSE ---
PATIENT VOMITED COPIOUS AMOUNT OF BLOOD WITH SEVERAL CLOTS. DR. DEL ROSARIO NOTIFIED STAT. REPORT CALLED TO BJ IN ICU. PATIENT TAKEN TO ICU 2 BY THIS NURSE AND MATTHEW BARAJAS.
[2022-01-15 18:46] LABS: Hematocrit 27.2 % (42.0-52.0); Hemoglobin 8.7 g/dL (11.7-16.6)
[2022-01-15] MEDS: sodium chloride 0.9% 1,000 ML 100 ML IV (19:35)
[2022-01-15] MEDS: pantoprazole 40 MG in sodium chloride 0.9% (plus) 100 ML 20 MG IV (19:36)
[2022-01-15] MEDS: octreotide 500 MCG in sodium chloride 0.9% (100 ml) 100 ML 10.1 MCG IV (19:37)
--- NOTE | 2022-01-15 19:45 | PC.NURSE ---
Central Line Placement Dr. Dodd at bedside to place right femoral central line. Timeout performed.
--- NOTE | 2022-01-15 20:22 | PM.ACPR ---
Acute Procedures Central Line Placement: Right Femoral: Time out performed: Yes Patient placed on monitor/pulse ox: Yes MD prep: mask, gown and gloves Central line prep: Chlorhexidine scrub and sterile drapes applied Local anesthesia used: lidocaine 1% Ultrasound used for placement: Yes Central line lumen inserted: triple Post procedure: sutured in place, good blood return, all ports aspirated, flushed, capped and sterile dressing applied Patient tolerated procedure: well and no complications
[2022-01-15 21:05] LABS: Glucose Point of Care 331 mg/dL (70-110)
[2022-01-15] MEDS: insulin lispro 100 unit/1 mL SUBCUT (21:12)
[2022-01-15 22:27] LABS: Hematocrit 25.6 % (42.0-52.0); Hemoglobin 8.1 g/dL (11.7-16.6)
[2022-01-16] VITALS (65 sets, daily range): BP systolic 77–113; BP diastolic 40–67; PULSE 86–111; RESP 17–31; TEMP 35.7–36.5; O2SAT 71–100
[2022-01-16] MEDS: piperacillin-tazobactam 3.375 GM in sodium chloride 0.9% (plus) 50 ML IV ×3 (01:13→16:55)
[2022-01-16] MEDS: pantoprazole 40 MG in sodium chloride 0.9% (plus) 100 ML 20 MG IV ×4 (01:14→18:16)
[2022-01-16 02:58] LABS: Basophils # 0.1 10^3/uL (0.0-0.1); Basophils % 0.4 %; Eosinophils % 0.2 %; Hematocrit 25.3 % (42.0-52.0); Hemoglobin 7.8 g/dL (11.7-16.6); Lymphocytes # 1.7 10^3/uL (0.8-4.8); Lymphocytes % 12.3 %; Mean Corpuscular HGB Conc 30.8 g/dL (30.0-36.0); Mean Corpuscular Hemoglobin 25.8 pg (28.0-34.0); Mean Corpuscular Volume 83.8 fl (80-94); Mean Platelet Volume 11.3 fL (7.4-10.4); Monocytes # 0.9 10^3/uL (0.2-0.9); Monocytes % 6.7 %; Neutrophils # 11.18 10^3/uL (1.8-7.7); Neutrophils % 79.3 %; Nucleated Red Blood Cells % 0 %; Platelet Count 156 10^3/cmm (130-400); Red Blood Count 3.02 10^6/uL (4.1-5.3); Red Cell Distribution Width 18.9 % (12.1-15.1); White Blood Count 14.1 10^3/uL (4.0-10.0)
[2022-01-16 03:24] LABS: Procalcitonin 0.21 ng/mL (0-0.5)
[2022-01-16 03:38] LABS: Alanine Aminotransferase 22 U/L (0-41); Albumin Level 2.6 g/dL (3.5-5.2); Alkaline Phosphatase 78 IU/L (40-130); Anion Gap 16.4 (5-19); Aspartate Amino Transferase 28 U/L (0-40); Blood Urea Nitrogen 43 mg/dL (8-23); Calcium 8.1 mg/dL (8.5-10.5); Carbon Dioxide 17 mmol/L (22-29); Chloride 103 mmol/L (98-107); Globulin 3.2 g/dL (1.3-4.6); Glomerular Filtration Rate 113.9 mL/min (90-130); Glucose 274 mg/dL (65-115); Magnesium 1.6 mg/dL (1.7-2.3); Osmolality Calculated 293 mOsm/kg (285-295); Potassium 5.4 mmol/L (3.5-5.1); Sodium 131 mmol/L (136-145); Total Bilirubin 0.8 mg/dL (0.15-1.2); Total Protein 5.8 g/dL (6.6-8.7)
[2022-01-16 03:44] LABS: INR 1.57 (0.8-1.2)
[2022-01-16 03:58] LABS: Lactic Sepsis W/Reflex 4.6 mmol/L (0.5-2.2)
[2022-01-16 03:59] LABS: Reflex Lactate Order REFLEX LACTIC ORDERD
[2022-01-16] MEDS: magnesium sulfate premix 2 GM/50 ML PIGGYBACK IV (05:13)
--- NOTE | 2022-01-16 05:24 | PC.NURSE ---
New Orders Informed retail shift leader hospitalist patient blood pressure was noted to be 78/40 with MAP 52 and temperature was 96.2. Received orders to start Levophed to maintain MAP >65 and apply andrew hugger.
--- NOTE | 2022-01-16 05:32 | PC.NURSE ---
Shift Summary Patient had an uneventful shift. Octreotide, Protonix, Albumin, Magnesium and NS are infusing please see MAR for infusion rates. Patient is alert/oriented and had no complaints of pain overnight. Ambulates to bedside commode with one person assist. Had 4 bloody bowel movements and 340 mls of urine out overnight. Redness noted to sacrum and scrotum, scrotum is also edematous. No other wounds/skin issues noted at this time.
[2022-01-16] MEDS: ondansetron 2 mg/ML SDV 2 mL 4 MG IVP ×2 (05:42→13:40)
[2022-01-16 06:05] LABS: Hemoglobin 6.9 g/dL (11.7-16.6)
[2022-01-16 06:31] LABS: Lactic Acid level (Lactate) 3.6 mmol/L (0.5-2.2)
[2022-01-16] MEDS: octreotide 500 MCG in sodium chloride 0.9% (100 ml) 100 ML 10.1 MCG IV ×2 (06:36→15:45)
[2022-01-16] MEDS: sodium chloride 0.9% 1,000 ML 100 ML IV ×2 (07:49→16:53)
[2022-01-16 08:13] LABS: Glucose Point of Care 243 mg/dL (70-110)
[2022-01-16] MEDS: insulin lispro 100 unit/1 mL SUBCUT ×3 (08:33→18:17)
--- NOTE | 2022-01-16 09:00 | PC.NURSE ---
Lab called. Blood not ready at this time.
[2022-01-16 10:48] LABS: Hematocrit 19.9 % (42.0-52.0); Hemoglobin 6.2 g/dL (11.7-16.6)
--- NOTE | 2022-01-16 10:53 | PC.NURSE ---
Blood still not ready d/t staffing. Processing now.
[2022-01-16 12:12] LABS: Glucose Point of Care 186 mg/dL (70-110)
--- NOTE | 2022-01-16 12:14 | PM.PN ---
Subjective Medications: Medication Review Details: Generic Name Dose Route Start Last Admin Trade Name Freq PRN Reason Stop Dose Admin Piperacillin Sod/T azobactam 50 mls @ 12.5 mls /hr 01/15/22 16:30 01/16/22 08:32 Sod 3.375 gm/ So dium Chloride IV 12.5 mls/hr Q8H CONNIE Administration Protocol Albumin Human 25 gm in 100 mls @ 60 mls/hr 01/15/22 17:00 01/16/22 08:32 Albumin IV 01/16/22 16:59 60 mls/hr Q8H CONNIE Administration Pantoprazole Sodiu m 40 mg/ 100 mls @ 20 mls/ hr 01/15/22 18:15 01/16/22 07:51 Sodium Chloride IV 8 mg/hr .Q5H CONNIE 20 mls/hr Administration 8 MG/HR Octreotide Acetate 500 mcg/ 101 mls @ 10.1 ml s/hr 01/15/22 18:15 01/16/22 06:36 Sodium Chloride IV 50 mcg/hr .Q10H CONNIE 10.1 mls/hr Administration 50 MCG/HR Sodium Chloride 1,000 mls @ 100 m ls/hr 01/15/22 18:30 01/16/22 07:49 Sodium Chloride 0.9% IV 100 mls/hr .Q10H CONNIE Administration Insulin Human Lisp ro 0 unit 01/15/22 18:00 01/16/22 08:33 Insulin Lispro 1 00 Unit/1 Ml SUBCUT 8 unit WM&BEDTIME CONNIE Administration Protocol Ondansetron HCl 4 mg 01/15/22 15:52 01/16/22 05:42 Ondansetron 2 Mg /Ml Sdv 2 Ml IVP 4 mg Q8H PRN Administration vomiting, or N/V if npo Vitals/I&O/Wt Last Vital Signs Temp 96.2 F L 01/16/22 04:00 Pulse 92 01/16/22 12:00 Resp 24 H 01/16/22 12:00 BP 106/59 01/16/22 12:00 Pulse Ox 95 01/16/22 12:00 01/15/22 01/16/22 01/16/22 22:59 06:59 14:59 Intake Total 150 / 1150 1751 / 2901 60 / 60 Output Total 340 / 340 Balance 150 / 1150 1411 / 2561 60 / 60 Weight last 48 hrs Weight 70.307 kg Physical Exam Const: COMMON NORMALS: patient oriented x3 HENMT: COMMON NORMALS: normocephalic, atraumatic and external ears normal HEAD & SCALP: normocephalic and atraumatic EXTERNAL EAR: Yes external ears normal Eye: GENERAL EYE: appearance normal, both eyes and all related structures Chest: COMMONS NORMALS: normal inspection of the chest and normal palpation of entire chest wall CHEST: Yes Symmetrical chest wall rise Resp: COMMON NORMALS: normal respiratory effort, No retractions, No use of accessory muscles and clear to auscultation bilaterally EFFORT & INSPECTION: Yes symmetric chest movement AUSCULTATION: clear to auscultation bilaterally Cardio: COMMON NORMALS: regular rate, regular rhythm, S1 normal heart sound present, S2 normal heart sound present, No gallops present (Cardio), No murmurs present (Cardio), No rub (Cardio) and Peripheral pulses 2+ throughout RATE: regular rate RHYTHM: regular rhythm HEART SOUNDS: S1 normal heart sound present and S2 normal heart sound present PERIPHERAL PULSES: Peripheral pulses 2+ throughout GI: COMMON NORMALS: Soft to palpation and No hepatosplenomegaly present AUSCULTATION: Yes normoactive bowel sounds PALPATION: Yes Soft to palpation and Yes No hepatosplenomegaly present RECTAL EXAM: Yes deferred OTHER: Abdominal Distension, Normal BS, no tenderness Extremity: COMMON NORMALS: no clubbing, cyanosis or edema and no pedal edema Neuro: COMMON NORMALS: patient oriented x3 Data : 01/16/22 09:45 01/16/22 02:05 Micro: Microbiology 01/15/22 14:19 Blood Culture - Preliminary Blood SPECIMEN COLLECTED 01/15/22 13:40 Blood Culture - Preliminary Blood SPECIMEN COLLECTED A&P Assessment and plan (1) Decompensated hepatic cirrhosis: Status: Acute (2) Hyponatremia: Status: Acute (3) Thrombocytopenia: Status: Acute (4) Anemia: Status: Acute (5) Lactic acidosis: Status: Acute (6) GI bleed: Status: Acute (7) Pulmonary embolism: Status: Acute Plan 61 year old male with past medical history of decompensated liver cirrhosis likely secondary to hep C and alcohol abuse (quit drinking 20 years back ) , diabetes, came in with chief complaint of dizziness as well as lightheadedness, he was also complaining of dark stool with blood tinge seen today. Assessment: #GI bleed: Upper GI bleed, secondary to varices secondary to decompensated liver cirrhosis: Patient had large bloody hematemesis today while on medical floor. H&H every 4 hours N.p.o. Protonix drip Octreotide drip Normal saline at 100 cc an hour Transfuse to maintain hemoglobin greater than 7 We will consult surgery for EGD #Normocytic anemia: Possibly secondary to GI bleed, liver cirrhosis Anemia automotive maintenance technician H&H #Thrombocytopenia: Secondary to decompensated liver cirrhosis, splenomegaly Monitor platelet count for now #Right pulmonary embolism: Not a candidate for anticoagulation #Ascites: In the setting of decompensated liver cirrhosis, No abdominal tenderness, no guarding no rigidity no rebound tenderness. Patient has been self draining his ascitic fluid at home, put him is at for possible secondary bacterial peritonitis, possible SBP. Not a good pocket for diagnostic or therapeutic tap for now will empirically cover with him Zosyn. We will give him albumin 75 g (for now we will avoid the normal dosing for SBP -1.5 gm/kg on day 1, as well as 1gm/kg body weight on day 3) We will consult IR in the morning for possible diagnostic tap. #Hypervolemic hyponatremia: Likely secondary to relative SIADH in the setting of decompensated liver cirrhosis. Current serum sodium is:127 Urine sodium Random cortisol Urine osmolality Serum osmolality TSH Continue to monitor serum sodium every 4 hours #Splenomegaly #Large right scrotal hydrocele: Ultrasound scrotum:Left testicle:? 2.7 x 1.5 x 2.3 cm. No mass. No torsion. Normal vascular flow. Right testicle:? 3.0 x 1.2 x 2.7 cm. No mass. No torsion. Normal vascular flow. Epididymides:? Left epididymal head 5.4 x 5.3 mm.? Left epididymal cyst measuring 4.5 mm.? Right epididymal head 9.1 x 5.2 mm. Scrotum:? Anechoic large superior right-sided hydrocele. Continue to monitor for now. #Occluded right portal vein. #Right inguinal hernia.: No signs of incarceration Surgery follow-up as an outpatient #?Paraumbilical hernia. #Diabetes: Continue sliding insulin scale #CODE STATUS: Full code #DVT prophylaxis: On SCD Coding Level of Care Code Acute Supervisor [employer] for [employer] Fwd Diagnoses Decompensated hepatic cirrhosis K72.90; K74.60 Hyponatremia E87.1 Thrombocytopenia D69.6 Anemia D64.9 Lactic acidosis E87.2 GI bleed K92.2 Pulmonary embolism I26.99
--- NOTE | 2022-01-16 12:18 | PC.CHAP ---
Pastoral Care Encounter/Spiritual Assessment Type of Contact [] Declined motor vehicle compliance analyst visit [] Patient/Family/Request visit [] Outpatient visit [] Follow-up visit [] Physician referral [] Code/Alert [x] Routine visit [] Staff referral [] Actively dying [] Patient sleeping [] Family support [] [] Out of room [] Palliative care [] [] Receiving care in room [] Pre-surgical visit [] Trauma [] Long length of stay [x] ICU visit [] Other: Relational/Emotional Strength [] Patient feels connected with others/family/visitors/staff [] Distress [] Loneliness/isolation [] Abandonment Spirituality of Patient [] Person of Jillian [] Attends Anabaptism of their Jillian [] Believes in Prayer [] Reads Bible or Methodist materials [] There are Spiritual issues to be addressed Purchasing Manager Interventions [x] Prayer [] Active listening [] Non-anxious presence [] Spiritual/emotional support [] Crisis/trauma care [] Spiritual counseling [] Bereavement support [] Provided bereavement packet [] Provided Bible/devotional materials [] Provided toy/stuffed animal, coloring book to patient or family member [] Provided Communion [] Anointing/[place] [] Salvation [x] Completed spiritual assessment [] Other: Impact on Illness or Injury [] Angry [] Fearful [] Anxious [] Often cries [] Exhaustion [] Unable to work [] Unable to attend jehovah's witness [] Unable to walk/stand [] Unable to read [] Unable to drive [] Unable to eat/drink [] Unable to sleep [] Unable to be with family [] Patient intubated [] Other: Summary Time spent with patient
--- NOTE | 2022-01-16 13:30 | PC.NURSE ---
Pt c/o nausea and abdominal cramping. Pt vomited 550ml of bright red blood with multiple golf ball sized clots. Zofran administered and Dr Dodd notified. Dr Dodd arrived promptly. Attempting to transfer pt to [facility] No new orders at this time. While Dr liliana, voiced concern with Medial line of right groin central line not flushing even after changing end cap. Heparin order received.
--- NOTE | 2022-01-16 14:08 | PC.NURSE ---
ZOFRAN ADMINISTERED--SCAN NOT SAVED Zofran administered at 1340 per order d/t vomiting. Scan not saved because TAR was open for RBC unit administration. Timed out and neither saved.
--- NOTE | 2022-01-16 14:12 | PM.TDS ---
Transfer Summary Providers Date of Admission: 01/15/22 15:52 Date of Discharge/Transfer: 01/16/22 Attending Provider at Admission: Scott Dodd MD Attending Provider at Transfer: Scott Dodd MD Primary Care Provider: Issac Figueredo MD Transfer Plans: Anticipated date of transfer: 01/16/22. Diagnoses at Discharge Discharge Diagnosis (1) Decompensated hepatic cirrhosis: Status: Acute (2) Hyponatremia: Status: Acute (3) Thrombocytopenia: Status: Acute (4) Anemia: Status: Acute (5) Lactic acidosis: Status: Acute (6) GI bleed: Status: Acute (7) Pulmonary embolism: Status: Acute Reason for Visit Reason for Visit BLOOD IN STOOL Hospital Course Hospital Course HPI: Memo Reyes Sr is a 61 year old male with past medical history of decompensated liver cirrhosis likely secondary to hep C and alcohol abuse (quit drinking 20 years back ) , diabetes, came in with chief complaint of dizziness as well as lightheadedness, he was also complaining of dark stool with blood tinge seen today. Patient has been also doing self paracentesis at home for the past 2 months He has been using an X-Acto knife which she sterilizes by flame and then use a topical anesthetic and antiseptic to prepare and then will use the X-Acto knife to incise an umbilical hernia and drain ascites fluid.? He has been doing this for last 2 months he said the first time he did it he got 5 gallons of fluid the second time he is only gotten 2 in each subsequent time he gets around 2 gallons. At home he has been denying, fever, chills, nausea vomiting at home.Patient has history of chronic hep C for which he says he has received treatment in the past. Today while he was on the medical floor he had a large bloody hematemesis. Currently he is being worked up for above-mentioned complaint: Pertinent imaging studies: CT abdomen and pelvis: Hepatic cirrhosis, with evidence of portal venous hypertension. Impression. Occluded right portal vein. Recanalized right portal vein posterior branch via collateral. Intrahepatic portal-portal venous shunting. Mild splenomegaly. Spontaneous splenorenal shunt. Gastric distension.? Nonspecific intragastric hyperdensity (upper GI bleeding history?). Findings consistent with nonspecific jejunitis and colitis. Clinical correlation to determine the specific etiology is recommended. Consider hepatic enteropathy. Prior cholecystectomy. Bilateral renal probable benign cysts. No follow-up imaging is recommended. Left renal calyceal lithiasis. Mild focal left renal cortical scarring. Moderate abdominal and pelvic ascites. Right inguinal hernia. Paraumbilical hernia. Diverticulosis. Chronic calcific prostatitis. Right lower lobe pulmonary artery embolus. US abdomen lmt fluid: Mild-moderate anechoic abdominal ascites. ? ?US scrotum: Large right scrotal hydrocele. Pertinent labs: WBC:? 9.2 , H&H:8.7/29.6 , PLT : 116 , PT/INR : 19/1.57 Serum sodium 127, serum potassium 4.9, BUN and serum creatinine: 28/0.7 , lactic acid 4.1, albumin:1.9 Lipase 68 Hospital course: He was admitted for the management of: #GI bleed: Upper GI bleed, secondary to varices secondary to decompensated liver cirrhosis: Patient had large bloody hematemesis today while on medical floor as well as in ICU H&H every 4 hours were monitored. Last H&H : 6.2/19.9. Currently N.p.o. s/p 2 U PRBC. On Protonix drip as well as Octreotide drip Normal saline at 100 cc an hour Transfuse to maintain hemoglobin greater than 7. Given the fact that the patient is having ongoing active upper GI bleed, patient will need EGD with possible variceal banding. Currently he is being transferred to [facility] in [facility]. 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 Patient has been self draining his ascitic fluid at home, put him is at for possible secondary bacterial peritonitis, possible SBP. Not a good pocket for diagnostic or therapeutic tap for now will empirically cover with him Zosyn. We will give him albumin 75 g (for now we will avoid the normal dosing for SBP -1.5 gm/kg on day 1, as well as 1gm/kg body weight on day 3) We will consult IR in the morning for possible diagnostic tap. #Hypervolemic hyponatremia:?Likely secondary to relative SIADH in the setting of decompensated liver cirrhosis. Admission serum sodium is:127: Current Serum sdoium : 131 Urine sodium Random cortisol Urine osmolality Serum osmolality TSH Continue to monitor serum sodium every 4 hours #Splenomegaly #Large right scrotal hydrocele: Ultrasound scrotum:Left testicle:? 2.7 x 1.5 x 2.3 cm. No mass. No torsion. Normal vascular flow. Right testicle:? 3.0 x 1.2 x 2.7 cm. No mass. No torsion. Normal vascular flow. Epididymides:? Left epididymal head 5.4 x 5.3 mm.? Left epididymal cyst measuring 4.5 mm.? Right epididymal head 9.1 x 5.2 mm. Scrotum:? Anechoic large superior right-sided hydrocele. Continue to monitor for now. #Occluded right portal vein. #Right inguinal hernia.:? No signs of incarceration Surgery follow-up as an outpatient #?Paraumbilical hernia. #Diabetes: Continue sliding insulin scale Physical Exam Const: COMMON NORMALS: patient oriented x3 HENMT: COMMON NORMALS: normocephalic and atraumatic HEAD & SCALP: normocephalic and atraumatic Eye: GENERAL EYE: appearance normal, both eyes and all related structures Chest: COMMONS NORMALS: normal inspection of the chest and normal palpation of entire chest wall CHEST: Yes Symmetrical chest wall rise Resp: COMMON NORMALS: normal respiratory effort, No retractions, No use of accessory muscles and clear to auscultation bilaterally EFFORT & INSPECTION: Yes symmetric chest movement AUSCULTATION: clear to auscultation bilaterally Cardio: COMMON NORMALS: regular rate, regular rhythm, S1 normal heart sound present, S2 normal heart sound present, No gallops present (Cardio), No murmurs present (Cardio), No rub (Cardio) and Peripheral pulses 2+ throughout RATE: regular rate RHYTHM: regular rhythm HEART SOUNDS: S1 normal heart sound present and S2 normal heart sound present PERIPHERAL PULSES: Peripheral pulses 2+ throughout GI: AUSCULTATION: Yes normoactive bowel sounds RECTAL EXAM: Yes deferred OTHER: Abdominal distention present, generalized abdominal tenderness, no guarding no rigidity no rebound tenderness Extremity: COMMON NORMALS: no clubbing, cyanosis or edema and no pedal edema Neuro: COMMON NORMALS: patient oriented x3 TS Data Studies Completed and Pending Pending at discharge Category Date Time Status Blood Culture Stat Lab 01/15/22 14:19 Results Body Fluid Culture & GS Stat Lab 01/15/22 15:30 Uncollected Complete Blood Count w/Auto AM LABS Lab 01/17/22 04:00 Ordered Complete Blood Count w/Auto AM LABS Lab 01/18/22 04:00 Ordered Comprehensive Metabolic Panel AM LABS Lab 01/17/22 04:00 Ordered Comprehensive Metabolic Panel AM LABS Lab 01/18/22 04:00 Ordered Hemoglobin and Hematocrit Q4H Lab 01/16/22 14:00 Ordered Hemoglobin and Hematocrit Q4H Lab 01/16/22 18:00 Ordered Hemoglobin and Hematocrit Q4H Lab 01/16/22 22:00 Ordered Hemoglobin and Hematocrit Q4H Lab 01/17/22 02:00 Ordered Hemoglobin and Hematocrit Q4H Lab 01/17/22 06:00 Ordered Hemoglobin and Hematocrit Q4H Lab 01/17/22 10:00 Ordered Hemoglobin and Hematocrit Q4H Lab 01/17/22 14:00 Ordered Hemoglobin and Hematocrit Q4H Lab 01/17/22 18:00 Ordered Hemoglobin and Hematocrit Q4H Lab 01/17/22 22:00 Ordered Leukocyte Reduced RBC Routine Lab 01/15/22 12:05 Results Type and Screen Routine Lab 01/15/22 12:05 Results Labs from last 24 hours 01/16/22 01/16/22 01/16/22 12:09 09:45 07:59 WBC RBC Hgb 6.2 L* Hct 19.9 L* MCV MCH MCHC RDW Plt Count MPV Neut % (Auto) Lymph % (Auto) [place] % (Auto) Eos % (Auto) Baso % (Auto) Neut # (Auto) Lymph # (Auto) [place] # (Auto) Eos # (Auto) Baso # (Auto) Nucleated RBC % (auto) Nucleated RBCs # PT INR APTT Sodium Potassium Chloride Carbon Dioxide Anion Gap BUN Creatinine GFR Calculation Glucose POC Glucose 186 H 243 H Calculated Osmolality Lactic Acid Lactic Acid (Sepsis) Calcium Magnesium Total Bilirubin AST ALT Alkaline Phosphatase Total Protein Albumin Globulin Lipase Procalcitonin Urine Color Urine Appearance Urine pH Ur Specific [place] Urine Protein Urine Glucose (UA) Urine Ketones Urine Blood Urine Nitrate Urine Bilirubin Urine Urobilinogen Ur Leukocyte Esterase Blood Type Rho(D) Type Antibody Screen Crossmatch 01/16/22 01/16/22 01/16/22 05:50 05:50 02:05 WBC RBC Hgb 6.9 L Hct 22.0 L MCV MCH MCHC RDW Plt Count MPV Neut % (Auto) Lymph % (Auto) [place] % (Auto) Eos % (Auto) Baso % (Auto) Neut # (Auto) Lymph # (Auto) [place] # (Auto) Eos # (Auto) Baso # (Auto) Nucleated RBC % (auto) Nucleated RBCs # PT INR APTT Sodium Potassium Chloride Carbon Dioxide Anion Gap BUN Creatinine GFR Calculation Glucose POC Glucose Calculated Osmolality Lactic Acid 4.6 H* Lactic Acid (Sepsis) 3.6 H Calcium Magnesium Total Bilirubin AST ALT Alkaline Phosphatase Total Protein Albumin Globulin Lipase Procalcitonin Urine Color Urine Appearance Urine pH Ur Specific [place] Urine Protein Urine Glucose (UA) Urine Ketones Urine Blood Urine Nitrate Urine Bilirubin Urine Urobilinogen Ur Leukocyte Esterase Blood Type Rho(D) Type Antibody Screen Crossmatch 01/16/22 01/16/22 01/16/22 02:05 02:05 02:05 WBC 14.1 H RBC 3.02 L Hgb 7.8 L Hct 25.3 L MCV 83.8 D MCH 25.8 L MCHC 30.8 RDW 18.9 H Plt Count 156 D MPV 11.3 H Neut % (Auto) 79.3 Lymph % (Auto) 12.3 [place] % (Auto) 6.7 Eos % (Auto) 0.2 Baso % (Auto) 0.4 Neut # (Auto) 11.18 H Lymph # (Auto) 1.7 [place] # (Auto) 0.9 Eos # (Auto) 0.0 Baso # (Auto) 0.1 Nucleated RBC % (auto) 0 Nucleated RBCs # 0.0 PT 19.10 H INR 1.57 H APTT Sodium 131 L Potassium 5.4 H Chloride 103 Carbon Dioxide 17 L Anion Gap 16.4 BUN 43 H Creatinine 0.7 GFR Calculation 113.9 Glucose 274 H POC Glucose Calculated Osmolality 293 Lactic Acid Lactic Acid (Sepsis) Calcium 8.1 L Magnesium 1.6 L Total Bilirubin 0.8 AST 28 ALT 22 Alkaline Phosphatase 78 Total Protein 5.8 L Albumin 2.6 L Globulin 3.2 Lipase Procalcitonin 0.21 Urine Color Urine Appearance Urine pH Ur Specific [place] Urine Protein Urine Glucose (UA) Urine Ketones Urine Blood Urine Nitrate Urine Bilirubin Urine Urobilinogen Ur Leukocyte Esterase Blood Type Rho(D) Type Antibody Screen Crossmatch 01/15/22 01/15/22 01/15/22 22:15 21:01 18:35 WBC RBC Hgb 8.1 L 8.7 L Hct 25.6 L 27.2 L MCV MCH MCHC RDW Plt Count MPV Neut % (Auto) Lymph % (Auto) [place] % (Auto) Eos % (Auto) Baso % (Auto) Neut # (Auto) Lymph # (Auto) [place] # (Auto) Eos # (Auto) Baso # (Auto) Nucleated RBC % (auto) Nucleated RBCs # PT INR APTT Sodium Potassium Chloride Carbon Dioxide Anion Gap BUN Creatinine GFR Calculation Glucose POC Glucose 331 H Calculated Osmolality Lactic Acid Lactic Acid (Sepsis) Calcium Magnesium Total Bilirubin AST ALT Alkaline Phosphatase Total Protein Albumin Globulin Lipase Procalcitonin Urine Color Urine Appearance Urine pH Ur Specific [place] Urine Protein Urine Glucose (UA) Urine Ketones Urine Blood Urine Nitrate Urine Bilirubin Urine Urobilinogen Ur Leukocyte Esterase Blood Type Rho(D) Type Antibody Screen Crossmatch 01/15/22 01/15/22 01/15/22 18:33 15:24 14:35 WBC RBC Hgb Hct MCV MCH MCHC RDW Plt Count MPV Neut % (Auto) Lymph % (Auto) [place] % (Auto) Eos % (Auto) Baso % (Auto) Neut # (Auto) Lymph # (Auto) [place] # (Auto) Eos # (Auto) Baso # (Auto) Nucleated RBC % (auto) Nucleated RBCs # PT INR APTT Sodium Potassium Chloride Carbon Dioxide Anion Gap BUN Creatinine GFR Calculation Glucose POC Glucose 330 H Calculated Osmolality Lactic Acid Lactic Acid (Sepsis) 4.1 H* Calcium Magnesium Total Bilirubin AST ALT Alkaline Phosphatase Total Protein Albumin Globulin Lipase Procalcitonin Urine Color Dark yellow Urine Appearance Clear Urine pH 5 Ur Specific [place] 1.020 Urine Protein Neg Urine Glucose (UA) 1+ H Urine Ketones 1+ H Urine Blood Neg Urine Nitrate Negative Urine Bilirubin 1+ H Urine Urobilinogen 1 H Ur Leukocyte Esterase Negative Blood Type Rho(D) Type Antibody Screen Crossmatch 01/15/22 01/15/22 01/15/22 14:19 13:40 13:17 WBC RBC Hgb Hct MCV MCH MCHC RDW Plt Count MPV Neut % (Auto) Lymph % (Auto) [place] % (Auto) Eos % (Auto) Baso % (Auto) Neut # (Auto) Lymph # (Auto) [place] # (Auto) Eos # (Auto) Baso # (Auto) Nucleated RBC % (auto) Nucleated RBCs # PT 19.40 H INR 1.59 H APTT 32.5 Sodium 127 L Potassium 4.9 Chloride 101 Carbon Dioxide 18 L Anion Gap 12.9 BUN 28 H Creatinine 0.7 GFR Calculation 113.9 Glucose 315 H POC Glucose Calculated Osmolality 282 L Lactic Acid 2.4 H Lactic Acid (Sepsis) Calcium 7.2 L Magnesium Total Bilirubin 0.7 AST 26 ALT 20 Alkaline Phosphatase 76 Total Protein 4.9 L Albumin 1.9 L Globulin 3.0 Lipase 68 H Procalcitonin Urine Color Urine Appearance Urine pH Ur Specific [place] Urine Protein Urine Glucose (UA) Urine Ketones Urine Blood Urine Nitrate Urine Bilirubin Urine Urobilinogen Ur Leukocyte Esterase Blood Type Rho(D) Type Antibody Screen Crossmatch 01/15/22 12:05 WBC RBC Hgb Hct MCV MCH MCHC RDW Plt Count MPV Neut % (Auto) Lymph % (Auto) [place] % (Auto) Eos % (Auto) Baso % (Auto) Neut # (Auto) Lymph # (Auto) [place] # (Auto) Eos # (Auto) Baso # (Auto) Nucleated RBC % (auto) Nucleated RBCs # PT INR APTT Sodium Potassium Chloride Carbon Dioxide Anion Gap BUN Creatinine GFR Calculation Glucose POC Glucose Calculated Osmolality Lactic Acid Lactic Acid (Sepsis) Calcium Magnesium Total Bilirubin AST ALT Alkaline Phosphatase Total Protein Albumin Globulin Lipase Procalcitonin Urine Color Urine Appearance Urine pH Ur Specific [place] Urine Protein Urine Glucose (UA) Urine Ketones Urine Blood Urine Nitrate Urine Bilirubin Urine Urobilinogen Ur Leukocyte Esterase Blood Type B Positive Rho(D) Type Positive Antibody Screen Negative Crossmatch See Detail Completed Studies During Hospitalization Category Date Time Status CT abdomen pelvis w con* [id number] Stat Cat Scan 01/15/22 12:55 Completed XR chest 1V portable [id number] Stat Exams 01/15/22 13:24 Completed US abdomen lmt fluid [id number] Stat Ultrasound 01/15/22 15:29 Completed US scrotum [id number] Urgent Ultrasound 01/15/22 15:51 Completed Laboratory Last Values WBC 14.1 10^3/uL (4.0-10.0) H 01/16/22 02:05 RBC 3.02 10^6/uL (4.1-5.3) L 01/16/22 02:05 Hgb 6.2 g/dL (11.7-16.6) L* 01/16/22 09:45 Hct 19.9 % (42.0-52.0) L* 01/16/22 09:45 MCV 83.8 fl (80-94) D 01/16/22 02:05 MCH 25.8 pg (28.0-34.0) L 01/16/22 02:05 MCHC 30.8 g/dL (30.0-36.0) 01/16/22 02:05 RDW 18.9 % (12.1-15.1) H 01/16/22 02:05 Plt Count 156 10^3/cmm (130-400) D 01/16/22 02:05 MPV 11.3 fL (7.4-10.4) H 01/16/22 02:05 Neut % (Auto) 79.3 % 01/16/22 02:05 Lymph % (Auto) 12.3 % 01/16/22 02:05 [place] % (Auto) 6.7 % 01/16/22 02:05 Eos % (Auto) 0.2 % 01/16/22 02:05 Baso % (Auto) 0.4 % 01/16/22 02:05 Neut # (Auto) 11.18 10^3/uL (1.8-7.7) H 01/16/22 02:05 Lymph # (Auto) 1.7 10^3/uL (0.8-4.8) 01/16/22 02:05 [place] # (Auto) 0.9 10^3/uL (0.2-0.9) 01/16/22 02:05 Eos # (Auto) 0.0 10^3/uL (0.0-0.8) 01/16/22 02:05 Baso # (Auto) 0.1 10^3/uL (0.0-0.1) 01/16/22 02:05 Nucleated RBC % (auto) 0 % 01/16/22 02:05 Nucleated RBCs # 0.0 /100WBC 01/16/22 02:05 PT 19.10 SECONDS (12.1-14.9) H 01/16/22 02:05 INR 1.57 (0.8-1.2) H 01/16/22 02:05 APTT 32.5 SECONDS (23.9-36.7) 01/15/22 13:17 Sodium 131 mmol/L (136-145) L 01/16/22 02:05 Potassium 5.4 mmol/L (3.5-5.1) H 01/16/22 02:05 Chloride 103 mmol/L (98-107) 01/16/22 02:05 Carbon Dioxide 17 mmol/L (22-29) L 01/16/22 02:05 Anion Gap 16.4 (5-19) 01/16/22 02:05 BUN 43 mg/dL (8-23) H 01/16/22 02:05 Creatinine 0.7 mg/dL (0.7-1.2) 01/16/22 02:05 GFR Calculation 113.9 mL/min (90-130) 01/16/22 02:05 Glucose 274 mg/dL (65-115) H 01/16/22 02:05 POC Glucose 186 mg/dL (70-110) H 01/16/22 12:09 Calculated Osmolality 293 mOsm/kg (285-295) 01/16/22 02:05 Lactic Acid 4.6 mmol/L (0.5-2.2) H* 01/16/22 02:05 Lactic Acid (Sepsis) 3.6 mmol/L (0.5-2.2) H 01/16/22 05:50 Calcium 8.1 mg/dL (8.5-10.5) L 01/16/22 02:05 Magnesium 1.6 mg/dL (1.7-2.3) L 01/16/22 02:05 Total Bilirubin 0.8 mg/dL (0.15-1.2) 01/16/22 02:05 AST 28 U/L (0-40) 01/16/22 02:05 ALT 22 U/L (0-41) 01/16/22 02:05 Alkaline Phosphatase 78 IU/L (40-130) 01/16/22 02:05 Total Protein 5.8 g/dL (6.6-8.7) L 01/16/22 02:05 Albumin 2.6 g/dL (3.5-5.2) L 01/16/22 02:05 Globulin 3.2 g/dL (1.3-4.6) 01/16/22 02:05 Lipase 68 U/L (13-60) H 01/15/22 14:19 Procalcitonin 0.21 ng/mL (0-0.5) 01/16/22 02:05 Urine Color Dark yellow (Yellow) 01/15/22 14:35 Urine Appearance Clear (CLEAR) 01/15/22 14:35 Urine pH 5 (5-7) 01/15/22 14:35 Ur Specific [place] 1.020 (1.005-1.030) 01/15/22 14:35 Urine Protein Neg (Negative) 01/15/22 14:35 Urine Glucose (UA) 1+ (Normal) H 01/15/22 14:35 Urine Ketones 1+ (Negative) H 01/15/22 14:35 Urine Blood Neg (Negative) 01/15/22 14:35 Urine Nitrate Negative (Negative) 01/15/22 14:35 Urine Bilirubin 1+ (Negative) H 01/15/22 14:35 Urine Urobilinogen 1 mg/dL (Negative) H 01/15/22 14:35 Ur Leukocyte Esterase Negative (Negative) 01/15/22 14:35 Blood Type B Positive 01/15/22 12:05 Rho(D) Type Positive 01/15/22 12:05 Antibody Screen Negative 01/15/22 12:05 Crossmatch See Detail 01/15/22 12:05 Radiology Impressions Abdomen/Pelvis CT 01/15/22 12:55 IMPRESSION: 1. Hepatic cirrhosis, with evidence of portal venous hypertension. Impression. 2. Occluded right portal vein. 3. Recanalized right portal vein posterior branch via collateral. 4. Intrahepatic portal-portal venous shunting. 5. Mild splenomegaly. 6. Spontaneous splenorenal shunt. 7. Gastric distension. Nonspecific intragastric hyperdensity (upper GI bleeding history?). 8. Findings consistent with nonspecific jejunitis and colitis. Clinical correlation to determine the specific etiology is recommended. Consider hepatic enteropathy. 9. Prior cholecystectomy. 10. Bilateral renal probable benign cysts. No follow-up imaging is recommended. 11. Left renal calyceal lithiasis. 12. Mild focal left renal cortical scarring. 13. Moderate abdominal and pelvic ascites. 14. Right inguinal hernia. 15. Paraumbilical hernia. 16. Diverticulosis. 17. Chronic calcific prostatitis. 18. Right lower lobe pulmonary artery embolus. 19. Coronary atherosclerosis. COMMENTS: Consistent with the [employer] [place] [employer]'s Incidental Findings Committee white paper (J Am Rehan Radiol 2018): Any incidental renal lesion less than 1 cm or classified as too small to characterize, or any incidental cystic renal lesion characterized as simple-appearing, is likely benign. No follow-up imaging is recommended for these lesions per consensus recommendations based on imaging criteria. ADDENDUM: 01/15/22 1607 THIS REPORT CONTAINS FINDINGS THAT MAY BE CRITICAL TO PATIENT CARE. The findings were verbally communicated by me to DR. YAKOV CESAR via telephone conference at 4:04 PM CDT on 01/15/2022. The findings were acknowledged and understood. CORRECTION: 1. Hepatic cirrhosis, with evidence of portal venous hypertension. Chest X-Ray 01/15/22 13:24 IMPRESSION: 2.3 cm rounded pneumonia in the left mid lung field. Follow-up exam is recommended to document clearing and rule out underlying neoplasm. Abdomen Ultrasound 01/15/22 15:29 IMPRESSION: Mild-moderate anechoic abdominal ascites. Scrotum Ultrasound 01/15/22 15:51 IMPRESSION: Large right scrotal hydrocele. Recent Clincial Data Last Vital Signs Temp 97.7 F 01/16/22 13:13 Pulse 103 H 01/16/22 14:00 Resp 27 H 01/16/22 14:00 BP 87/57 01/16/22 14:00 Pulse Ox 95 01/16/22 14:00 Vital Signs Temp Pulse Resp BP Pulse Ox 01/16/22 14:00 103 H 27 H 87/57 95 01/16/22 13:45 104 H 29 H 97/64 96 01/16/22 13:30 106 H 24 H 86/45 95 01/16/22 13:15 111 H 21 H 78/48 88 L 01/16/22 13:13 97.7 F 93 23 H 86/42 95 01/16/22 13:00 107 H 27 H 77/46 88 L 01/16/22 12:47 97.7 F 93 23 H 86/42 95 01/16/22 12:45 95 19 H 86/42 93 01/16/22 12:30 91 17 86/42 92 01/16/22 12:15 92 22 H 106/55 93 01/16/22 12:00 92 24 H 106/59 95 01/16/22 11:45 96 21 H 90/63 99 01/16/22 11:30 90 20 H 97/52 96 01/16/22 11:15 88 21 H 97/51 91 01/16/22 11:00 92 25 H 113/53 87 L 01/16/22 10:45 88 22 H 113/53 96 01/16/22 10:30 92 21 H 95/54 98 01/16/22 10:15 94 22 H 101/65 93 01/16/22 10:00 102 H 28 H 110/61 93 01/16/22 09:45 92 27 H 91/61 96 01/16/22 09:30 93 22 H 84/57 96 01/16/22 09:15 94 21 H 101/56 96 01/16/22 09:00 92 25 H 102/59 94 01/16/22 08:45 95 24 H 96/66 99 01/16/22 08:30 92 25 H 105/61 86 L 01/16/22 08:15 89 23 H 105/61 96 01/16/22 08:00 90 25 H 90/53 98 01/16/22 07:45 93 18 107/59 98 01/16/22 07:30 93 22 H 101/62 95 01/16/22 07:15 94 18 100/54 90 01/16/22 07:00 93 21 H 100/54 94 01/16/22 06:45 94 31 H 100/63 86 L 01/16/22 06:30 88 20 H 97/57 97 01/16/22 06:15 93 24 H 105/58 96 01/16/22 06:00 88 20 H 104/57 98 01/16/22 04:45 87 23 H 89/51 98 01/16/22 04:30 93 25 H 78/40 71 L 01/16/22 04:15 86 22 H 78/40 74 L 01/16/22 04:00 96.2 F L 94 28 H 01/16/22 03:45 91 24 H 84/49 01/16/22 03:30 92 22 H 84/49 96 01/16/22 03:15 89 19 H 79/43 95 01/16/22 03:00 88 18 82/49 95 01/16/22 02:45 88 17 77/42 97 01/16/22 02:30 93 21 H 82/46 88 L 01/16/22 02:15 96 22 H 89/50 96 Intake & Output/Weight 01/14/22 01/15/22 01/16/22 01/17/22 06:59 06:59 06:59 06:59 Intake Total 2901 / 2901 60 / 60 Output Total 340 / 340 Balance 2561 / 2561 60 / 60 Weight 70.307 kg Vitals Last Vital Signs Temp 97.7 F 01/16/22 13:13 Pulse 103 H 01/16/22 14:00 Resp 27 H 01/16/22 14:00 BP 87/57 01/16/22 14:00 Pulse Ox 95 01/16/22 14:00 TS Medications Medications Acetaminophen (Acetaminophen 325 Mg Tablet) 650 mg PO Q6H PRN PRN Reason: Mild/Mod Pain Or Temp >/= 101 Bisacodyl (Bisacodyl 5 Mg Tablet) 10 mg PO DAILY PRN; Protocol PRN Reason: Constipation (see protocol) Dextrose (Dextrose 50% Syringe 50 Ml) 25 ml IVP ONCE PRN; Protocol PRN Reason: hypoglycemia protocol Dextrose (Dextrose 50% Syringe 50 Ml) 50 ml IVP PRN PRN; Protocol PRN Reason: hypoglycemia protocol Glucagon (Glucagon 1 Mg/Ml Inj 1 Ml) 1 mg IM ONCE PRN; Protocol PRN Reason: Adult Acute Hypoglycemia Prot. Piperacillin Sod/Tazobactam (Sod 3.375 gm/ Sodium Chloride) 50 mls @ 12.5 mls/hr IV Q8H [facility]; Protocol Last Admin: 01/16/22 08:32 Dose: 12.5 mls/hr Documented by: Albumin Human (Albumin) 25 gm in 100 mls @ 60 mls/hr IV Q8H [facility] Stop: 01/16/22 16:59 Last Admin: 01/16/22 08:32 Dose: 60 mls/hr Documented by: Dextrose (D5w) 500 mls @ 100 mls/hr IV ONCE PRN; Protocol PRN Reason: Adult Acute Hypoglycemia Prot Pantoprazole Sodium 40 mg/ (Sodium Chloride) 100 mls @ 20 mls/hr IV .Q5H [facility] Last Admin: 01/16/22 07:51 Dose: 8 mg/hr, 20 mls/hr Documented by: Octreotide Acetate 500 mcg/ (Sodium Chloride) 101 mls @ 10.1 mls/hr IV .Q10H [facility] Last Admin: 01/16/22 06:36 Dose: 50 mcg/hr, 10.1 mls/hr Documented by: Sodium Chloride (Sodium Chloride 0.9%) 1,000 mls @ 100 mls/hr IV .Q10H [facility] Last Admin: 01/16/22 07:49 Dose: 100 mls/hr Documented by: Norepinephrine Bitartrate 4 mg (/ Dextrose) 254 mls @ 0 mls/hr IV .Q0M [facility]; Protocol Insulin Human Lispro (Insulin Lispro 100 Unit/1 Ml) 0 unit SUBCUT WM&BEDTIME [facility]; Protocol Last Admin: 01/16/22 08:33 Dose: 8 unit Documented by: Ondansetron HCl (Ondansetron 2 Mg/Ml Sdv 2 Ml) 4 mg IVP Q8H PRN PRN Reason: vomiting, or N/V if npo Last Admin: 01/16/22 13:40 Dose: 4 mg Documented by: Discontinued Medications Sodium Chloride (Sodium Chloride 0.9%) 1,000 mls @ 999 mls/hr IV .Q1H1M ONE Stop: 01/15/22 14:45 Last Infusion: 01/15/22 14:49 Dose: Infused Documented by: Magnesium Sulfate (Magnesium Sulfate Premix) 2 gm in 50 mls @ 50 mls/hr IV ONCE ONE Stop: 01/16/22 05:32 Last Infusion: 01/16/22 06:13 Dose: Infused Documented by: Albumin Human (Albumin) 25 gm in 100 mls @ 60 mls/hr IV ONCE ONE Stop: 01/16/22 06:13 Last Infusion: 01/16/22 06:51 Dose: Infused Documented by: Sodium Chloride (Sodium Chloride 0.9% (100 Ml)) Confirm Administered Dose 100 mls @ as directed .ROUTE .STK-MED ONE Stop: 01/16/22 11:24 Last Admin: 01/16/22 14:11 Dose: Not Given Documented by: Insulin Glargine (Insulin Glargine 100 Units/1 Ml) 20 unit SUBCUT BEDTIME CONNIE Iohexol (Iohexol 300 Mg/Ml 100 Ml Btl) 0 ml IV ONCE ONE Stop: 01/15/22 15:20 Last Admin: 01/15/22 15:19 Dose: 95 ml Documented by: Pantoprazole Sodium (Pantoprazole 40 Mg Sdv) 40 mg IVP Q24H CONNIE Last Admin: 01/15/22 16:26 Dose: 40 mg Documented by: Allergies No Known Allergies Allergy (Verified 01/15/22 12:46) Home Medications insulin glargine 100 unit/mL subcutaneous solution (Lantus U-100 Insulin) 20 unit SUBCUT DAILY 01/15/22 [History Confirmed 01/15/22] Discharge Plan Discharge Condition: Critical Prescriptions: Continued Lantus U-100 Insulin 100 unit/mL Solution 20 unit SUBCUT DAILY 0RF Referrals: Issac Figueredo MD [Primary Care Provider] - Patient Instructions: Opioid Safety Transfer Attestations Time Spent in Transfer Care: critical care time Critical Care Time (min): 60 Specific Discharge Activities: educating patient, educating and/or supporting family/caregiver, discussing with pcp/other providers, discussing with foster care case manager/social workers/dc planners, documenting/other paperwork and evaluating patient/reviewing data Status at Transfer: Cognitive status at transfer: cognitively intact; Behavioral status at transfer: cooperative; Quality Metrics Clinical Quality Measures [ No reported AMI, CVA or VTE this stay] Coding Level of Care Code Acute Athletic Monitor for g Fwd Exam Comprehensive Diagnoses Decompensated hepatic cirrhosis K72.90; K74.60 Hyponatremia E87.1 Thrombocytopenia D69.6 Anemia D64.9 Lactic acidosis E87.2 GI bleed K92.2 Pulmonary embolism I26.99
[2022-01-16 14:19] LABS: Glucose Point of Care 205 mg/dL (70-110)
[2022-01-16 15:04] LABS: Hematocrit 18.9 % (42.0-52.0); Hemoglobin 5.9 g/dL (11.7-16.6)
--- NOTE | 2022-01-16 15:45 | PC.NURSE ---
Octreotide scanned late because pt still had volume in existing bag.
[2022-01-16] MEDS: sodium chloride 0.9% (100 ml) 100 ML 50 ML (16:57)
[2022-01-16 17:50] LABS: Glucose Point of Care 221 mg/dL (70-110)
[2022-01-16 18:44] LABS: Hematocrit 19.5 % (42.0-52.0); Hemoglobin 6.1 g/dL (11.7-16.6)
== END 2022-01-16 18:20 | disposition short-term general hospital (02) | DRG 441 ==
LOC: ER 14:16 → MEDSURG 16:27 → ICU 18:16
PROVIDERS: Admitting Provider Internal Medicine; Emergency Provider Family Medicine; PCP Pediatrics; Visit Provider Internal Medicine
DX: K72.90 Hepatic failure, unspecified without coma (principal); I26.99 Other pulmonary embolism without acute cor pulmonale; I81 Portal vein thrombosis; E87.1 Hypo-osmolality and hyponatremia; E87.2 Acidosis; K92.2 Gastrointestinal hemorrhage, unspecified; R18.8 Other ascites; D69.6 Thrombocytopenia, unspecified; K74.69 Other cirrhosis of liver; B19.20 Unspecified viral hepatitis C without hepatic coma; D50.0 Iron deficiency anemia secondary to blood loss (chronic); R16.1 Splenomegaly, not elsewhere classified; K42.9 Umbilical hernia without obstruction or gangrene; E11.9 Type 2 diabetes mellitus without complications; N43.3 Hydrocele, unspecified; F10.21 Alcohol dependence, in remission; Z79.4 Long term (current) use of insulin; I86.4 Gastric varices
CPT/HCPCS: 36415; 36416; 36430; 36592; 71045; 74177; 76705; 76870; 80053; 81003; 82962; 83605; 83690; 83735; 84145; 85014; 85018; 85025; 85610; 85730; 86850; 86900; 86920; 87040; 96365; 96367; 96372; 96375; 99285; C1751; C9113; J1642; J1815; J2354; J2405; J2543; J3475; J7030; P9016; P9047; Q9967